=== PATIENT | male | born 1980 | race Two or more races ===

== ENCOUNTER 2022-07-20 12:28 | Emergency (ER) | payer SELFPAY ==
[~2022-07-20] VITALS: Ht 185.4 cm; Wt 118.2 kg
[2022-07-20 13:15] LABS: Basophils # (auto) 0 10 ^3/uL (0-0.2); Eosinophils # (auto) 0.1 10 ^3/uL (0-0.8); Neutrophils # (auto) 4.9 10 ^3/uL (1.6-8.6)
[2022-07-20 13:17] LABS: Basophils % (auto) 0.4 % (0.0-2.0); Eosinophils % (auto) 1.8 % (0.0-7.0); Hematocrit 48.4 % (41.0-53.0); Hemoglobin 16.7 g/dL (13.5-17.5); Lymphocytes % (auto) 26.7 % (10.0-50.0); Mean Corpuscular Hemoglobin 39.3 pg (28.0-32.0); Mean Corpuscular Hgb Conc. 34.6 g/dL (32.0-36.0); Mean Corpuscular Volume 113.6 fL (80.0-100.0); Monocytes # (auto) 0.3 10 ^3/uL (0-1.3); Monocytes % (auto) 4.1 % (0.0-12.0); Nucleated Red Blood Cells % 0.4 %; Red Blood Cells 4.26 10^6/uL (4.5-5.90); Red Cell Distribution Width 17.8 % (11.8-14.3); White Blood Cell 7.3 10^3/uL (4.4-10.8)
[2022-07-20 13:41] LABS: Potassium 3.7 mmol/L (3.5-5.1)
[2022-07-20 13:50] LABS: BUN/Creatinine Ratio 4.2; Bilirubin, Total 2.2 mg/dL (0.2-1.0); Calcium 8.3 mg/dL (8.5-10.1)
[2022-07-20] MEDS ORDERED: FUROSEMIDE 100 MG/10ML VIAL IV ONE (15:45)
[2022-07-20] MEDS ORDERED: FURO1TAB33 GT (16:28)
[2022-07-20] MEDS ORDERED: FUROSEMIDE INJECTION 10 ML ONE (23:10)
[2022-07-20 23:15] VITALS: BP 177/121
== END 2022-07-20 23:36 | disposition home or self-care (01) ==
LOC: ER 12:28
DX: R60.9 Edema, unspecified (principal); E80.6 Other disorders of bilirubin metabolism; F10.10 Alcohol abuse, uncomplicated
CPT/HCPCS: 36415; 80053; 83735; 83880; 84484; 85025; 86141; 93970; 96374; 99284; J1940